=== PATIENT | male | born 1980 | race Caucasian/White ===

== ENCOUNTER 2021-07-28 11:00 | Emergency (ER) | payer BC ==
--- NOTE | 2021-07-28 11:13 | EDM.PDOCBH ---
ED HPI GENERAL MEDICAL PROBLEM - General Chief Complaint: Behavioral/Psych Stated Complaint: HARMFUL THOUGHTS Time Seen by Provider: 07/28/21 11:12 Source of Information: Reports: Patient, Police, Provider History Limitations: Reports: No Limitations - History of Present Illness INITIAL COMMENTS - FREE TEXT/NARRATIVE: 41-year-old male presents to the ED at the request of Dr. Phillip whom did see him in the clinic. The patient went to the clinic seeking medication for major depressive illness. Patient states he has suicidal ideation thoughts almost on a daily and has for several months. He has never come up with a definitive plan. He is unhappy with his job and coworkers. He feels that he the work that he does is never good enough to please them. He states his is nagging him a good deal of the time as well. He admits that he does feel fatigued and does not have a large amount of energy. He admits that he does have mood swings but for the most part does feel sad and down. He states he sleeps well and has been eating satisfactorily. He does not drink alcohol or take any street drugs. He has three children the oldest of which is 21. She recently got and he had not been speaking her with her for the last 2 years and therefore was not invited to the wedding which is made him feel quite bad. He states his overall has been supportive but is getting tired of his continued lethargy and decreased libido. Dr. Phillip felt that his suicide risk was fairly high but once I approach this subject with the patient he denies any suicidal intent. He states if he was really suicidal he would have already done it. After a lengthy conversation it was decided that he would benefit from antidepressant medication and is willing certainly to try this. At this time he does not meet criteria for admission to psychiatric facility as he has no definitive plan and does not feel strongly suicidal. Onset: Unknown/Unsure (Has had suicidal ideation off and on for the last 6 months or more.) Duration: Chronic, Other (Devin ideation daily.) Location: Reports: Generalized, Other (Suicidal ideation on a daily basis. Chronic major depression symptoms) Severity: Moderate Improves with: Reports: None Worsens with: Reports: Other (Coworkers are not very supportive of him and he feels his neck is nagging him a good deal which does make him feel more suicidal at times.) Context: Denies: Activity, Exercise, Lifting, Sick Contact, Trauma, Other Associated Symptoms: Reports: Malaise, Other (Reports he is sleeping well.). 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) - Related Data Allergies Allergy/AdvReac Type Severity Reaction Status Date / Time sulfamethoxazole Allergy Rash Verified 07/28/21 11:15 [From ] trimethoprim [From ] Allergy Rash Verified 07/28/21 11:15 vancomycin Allergy Itching Verified 07/28/21 11:15 Home Meds: Home Meds Aspirin/Acetaminophen/Caffeine [Excedrin Migraine Caplet] 2 tab PO Q4HR 07/28/21 [History] Eletriptan Hydrobromide [Eletriptan HBr] 20 mg PO DAILY 07/28/21 [History] Escitalopram [Lexapro] 20 mg PO DAILY #30 tab 07/28/21 [Rx] Propranolol [Inderal LA] 80 mg PO DAILY 07/28/21 [History] Past Medical History - Past Health History Medical/Surgical History: Denies Medical/Surgical History Cardiovascular History: Reports: Other (See Below) (Patient states he has been told he has a patent ductus arteriosus. He has sought out cardiology consultation and at this time they feel no treatment is indicated.) Neurological History: Reports: Migraines (Grams a dayDoes get a lot of migraine headaches. Recently did see neurology services does not remember the name of the doctor but was started on Cymbalta and after 2 weeks is to increase to 60 mg daily. He went to the pharmacy to get the medication but they did not have it in stock and they are or) Social & Family History - Living Situation & Occupation Living situation: Reports: with Significant Other Occupation: Employed ED ROS GENERAL - Review of Systems Review Of Systems: See Below Constitutional: Reports: Fatigue, Decreased Appetite (Not losing weight). Denies: Fever, Chills, Malaise, Weight Loss HEENT: Reports: No Symptoms Respiratory: Reports: No Symptoms Cardiovascular: Reports: No Symptoms Endocrine: Reports: No Symptoms GI/Abdominal: Reports: No Symptoms : Reports: No Symptoms Musculoskeletal: Reports: No Symptoms Skin: Reports: No Symptoms Neurological: Reports: Headache (Gets a lot of headaches usually 4 to 5 days a week.) Psychiatric: Reports: No Symptoms Hematologic/Lymphatic: Reports: No Symptoms Immunologic: Reports: No Symptoms ED EXAM, BEHAVIORAL HEALTH - Physical Exam Exam: See Below Exam Limited By: No Limitations General Appearance: Alert, WD/WN, No Apparent Distress, Other (Patient is somewhat angry about being transferred to the hospital per motorcycle police officer. He states he will not be seeing Dr. Phillip ever again) Eye Exam: Bilateral Eye: Normal Inspection, PERRL Throat/Mouth: Normal Inspection, Normal Lips, Normal Oropharynx Head: Atraumatic, Normocephalic Neck: Normal Inspection, Supple, Non-Tender, Full Range of Motion. No: Lymphadenopathy (L), Lymphadenopathy (R) Respiratory/Chest: No Respiratory Distress, Lungs Clear, Normal Breath Sounds, No Accessory Muscle Use Cardiovascular: Normal Peripheral Pulses, Regular Rate, Rhythm, No Edema, No Gallop, No Murmur, No Rub GI/Abdominal: Normal Bowel Sounds, Soft, Non-Tender, No Organomegaly, No Distention Back Exam: Normal Inspection, Full Range of Motion. No: CVA Tenderness (L), CVA Tenderness (R) Extremities: Normal Inspection, Normal Range of Motion, Non-Tender, No Pedal Edema Neurological: Alert, Normal Mood/Affect, CN II-XII Intact, Normal Cognition, No Motor/Sensory Deficits, Oriented x 3 Psychiatric: Alert, Normal Affect, Normal Cognition, Normal Mood, Oriented, Suicidal Thoughts (Suicidal ideation on an almost daily basis. Has no specific plan.). No: Poor Eye Contact, Uncooperative, Withdrawn, Flight of Ideas, Homicidal Thoughts, Phobic, Catholic Delusions, Suicidal Plan, Auditory Hallucinations, Visual Hallucinations Skin Exam: Warm, Dry, Intact, Normal color, No rash #1 Interpretation EKG Date: 07/28/21 Time: 11:52 Rhythm: Other (Sinus bradycardia) Rate (Beats/Min): 46 (Occasional PACs) [place]: Normal P-Wave: Present QRS: Other (Borderline criteria for left ventricular hypertrophy) ST-T: Normal QT: Normal EKG Interpretation Comments: Borderline ECG COURSE, BEHAVIORAL HEALTH COMP - Course Vital Signs: Last Vital Signs Temp 36.1 C 07/28/21 11:11 Pulse 50 L 07/28/21 11:11 Resp 18 07/28/21 11:11 BP 173/108 H 07/28/21 11:11 Pulse Ox 99 07/28/21 11:11 Re-Assessment/Re-Exam: 41-year-old male presents to the ED for evaluation of depression symptoms which he states have been plaguing him for greater than 6 months. He states most days he has fleeting suicidal ideation but is never come up with a definitive plan to end his life. He came to the physician today to get started on antidepressant medication which he has never been on before. Concerns arose that he may require admission to a psychiatric facility and has been placed on a hold. This was carried out by . Whom I have been in contact with this morning. However on my evaluation the patient he is indeed depressed and has suicidal ideation almost on a daily basis. He is unhappy with his work and not real happy with his home life at this time. He recognizes that he is fatigued and poorly motivated to do tasks around the home which creates conflict between him and his . He states he tries hard to do his job as good as possible but it never seems to meet with satisfaction with his coworkers or saldaña. He states he hates his job. Patient has no substance abuse issues. It is my opinion that at this time he has no definitive suicidal plan that he is unlikely to be accepted into a psychiatric facility. Plan will be to start him on Escitalopram 10 mg daily for 8 days and then increase to 20 mg once daily. Of asked him to place his Cymbalta prescribed by neurologist for migraine headaches on hold for at least a month. If he still getting a lot of headaches and after discussion with follow-up physician they will determine whether or not he could start Cymbalta 30 mg daily as both Cymbalta and Escitalopram could be utilized forward depression symptoms if so needed. Departure - Departure Time of Disposition: 12:13 Disposition: Home, Self-Care 01 Condition: Fair Clinical Impression: Depressive disorder - Discharge Information *PRESCRIPTION DRUG MONITORING PROGRAM REVIEWED*: Not Applicable *COPY OF PRESCRIPTION DRUG MONITORING REPORT IN PATIENT CHRISTIE: Not Applicable Prescriptions: Escitalopram [Lexapro] 20 mg PO DAILY #30 tab Instructions: Managing Depression, Adult, Major Depressive Disorder, Adult, [id number] Referrals: PCP,None [Primary Care Provider] - Forms: ED Department Discharge Additional Instructions: Evaluation in the emergency room today in regards to major depression symptoms with daily suicidal ideation with no definitive plan to end her life. You came to clinic in order to start on an antidepressant medication seeking help. It was the opinion of Dr. Phillip that you were in need of psychiatry evaluation and monitoring for 72 hours. However on my evaluation I feel that you simply need to be started on antidepressant medication in an effort to bring your depression symptoms under control and make the suicidal ideation thoughts go away. The medication will take a good 12 days to start to work and is starting to work quite well by day 21 of starting the medication. It will take about 3 months to completely reverse suicidal thoughts processes. Suggest starting 10 mg of Escitalopram once daily in the morning for the first 8 days and then increase to a full 20 mg tablet. You will need to follow-up with a care provider to provide further prescriptions and monitor your symptoms. At this time I do not think that is Seri to follow-up with a psychiatrist per se. Suggest follow-up with either Dr. Beltran Judge or Swapnil Carnes. They work in the [facility] side of the hospital on the third floor. You can arrange an appointment by calling [phone]. I would suggest follow-up in about 3 weeks time. If it anytime you feel that you are having increased suicidal thoughts please return to the emergency room at any time. In regards to starting Cymbalta as advised by neurology she recently seen I would suggest putting this on hold for about a month. If you are continue to have bad headaches on a daily basis then you could start Cymbalta 30 mg daily at bedtime after you have been on the Lexapro or escitalopram for a month. Sepsis Event Note (ED) - Focused Exam Vital Signs: Vital Signs Temp Pulse Resp BP Pulse Ox 07/28/21 11:11 36.1 C 50 L 18 173/108 H 99
[2021-07-28 11:16] VITALS: BP 173/108; PULSE 50
== END 2021-07-28 12:20 | disposition home or self-care (01) ==
LOC: JD.ED 11:00
DX: F32.9 Major depressive disorder, single episode, unspecified (principal); Z88.1 Allergy status to other antibiotic agents; Z79.82 Long term (current) use of aspirin
CPT/HCPCS: 93005; 93010; 99283; 99284-25